=== PATIENT | male | born 1970 | race Caucasian/White ===

== ENCOUNTER 2019-04-07 | Emergency (ER) | payer OTHER ==
[2019-04-07] MEDS ORDERED: NEXIUM40 M1 PO (17:03)
[2019-04-07] MEDS ORDERED: CELEXA20 MG PO (17:03)
[2019-04-07] MEDS ORDERED: TAM75CAP PO (17:33)
[2019-04-07] MEDS ORDERED: ZOFRAN4 MG/TAB PO (17:33)
[2019-04-07] MEDS ORDERED: CODEINE/GUAIFEN1 SOL PO (17:33)
== END 2019-04-07 17:44 | disposition home or self-care (01) | DRG 195 ==
DX: J10.1 Influenza due to other identified influenza virus with other respiratory manifestations (principal)